=== PATIENT | male | born 1970 | race Two or more races ===

== ENCOUNTER 2023-09-17 08:16 | Emergency (ER) | payer BC ==
[~2023-09-17] VITALS: Ht 175.3 cm; Wt 72.6 kg
[2023-09-17 08:35] VITALS: BP 162/86; TEMP 98; O2SAT 99
[2023-09-17] MEDS ORDERED: MELO-107 PO (10:17)
== END 2023-09-17 10:22 | disposition home or self-care (01) ==
LOC: ER 08:28
DX: M25.511 Pain in right shoulder (principal); I12.9 Hypertensive chronic kidney disease with stage 1 through stage 4 chronic kidney disease, or unspecified chronic kidney disease; N18.9 Chronic kidney disease, unspecified
CPT/HCPCS: 73030-TC